=== PATIENT | male | born 1935 | race Caucasian/White ===

== ENCOUNTER 2017-03-14 18:50 | Emergency (ER) | payer MEDICARE, OTHER ==
[~2017-03-14 18:50] MED LIST: ADALAT CC PO; ADALAT PO; AMBIEN PO; ASPIRIN EC81 M1 PO; ASPIRIN81 MG PO; BP MED PO; CRESTOR40 MG PO; FLONASE 0.05% N16 G1; FLONASE 0.05% N16 G1 INH; GINGER ROOT550 M1 PO; NEURONTIN300 MG PO; PATADAY2.5 ML IOCULR; PRILOSEC PO; PROTONIX PO; UROXATRAL10 MG PO; VOLTAREN GEL TOP; VOLTAREN100 GM TD; ZINC30 M1 PO; ZYRTEC10 M2 PO; [UNRECOGNIZED DRUG - OTHER] PO; [UNRECOGNIZED DRUG - OTHER] PO
== END 2017-03-14 19:28 | disposition home or self-care (01) ==
LOC: SED 18:50
DX: H60.92 Unspecified otitis externa, left ear (principal); I10 Essential (primary) hypertension; Z95.1 Presence of aortocoronary bypass graft; Z86.73 Personal history of transient ischemic attack (TIA), and cerebral infarction without residual deficits; Z98.890 Other specified postprocedural states
CPT/HCPCS: 99282

== ENCOUNTER 2017-03-17 15:48 | Emergency (ER) | payer MEDICARE, OTHER | END 2017-03-17 16:09 | disposition home or self-care (01) | LOC: SED 15:48 | DX: H60.92 Unspecified otitis externa, left ear (principal); I10 Essential (primary) hypertension; Z79.82 Long term (current) use of aspirin; Z79.899 Other long term (current) drug therapy | CPT/HCPCS: 99282 ==

== ENCOUNTER → 2017-08-18 | Outpatient (CLI) | payer MEDICARE, OTHER ==
[2017-08-18 15:48] LABS: BUN/CREATININE RATIO 9.61; CALCIUM SERUM 8.7 mg/dL (8.4-10.2); CREATININE SERUM 2.6 mg/dL (0.6-1.4); GLOM FILT RATE Estimated 21.7 mL/min (>60); POTASSIUM 3.7 mmol/L (3.5-5.1)
== END | disposition home or self-care (01) ==
LOC: SLAB 14:02
PROVIDERS: Internal Medicine Cardiovascular Disease
DX: I25.10 Atherosclerotic heart disease of native coronary artery without angina pectoris (principal)
CPT/HCPCS: 36415; 80048; 80061; 82043; 84460